=== PATIENT | male | born 1960 ===

== ENCOUNTER 2017-06-29 18:16 | Inpatient (IN) | payer MEDICARE, BC ==
[~2017-06-29] VITALS: Ht 182.8 cm; Wt 117.9 kg
--- NOTE | ~2017-06-29 | WRIGHTHP ---
[place], [place] PATIENT HISTORY AND PHYSICAL EXAM NAME: [facility]AR SR [id number] UNIT #: [id number] ROOM: 312 DOCTOR: MARY KATE CARTER MD BIRTHDATE: [birth year] DOS: 06/30/2017 CHIEF COMPLAINT: "I was not sleeping doc, I did sleep last night." HISTORY OF PRESENT ILLNESS: This is a 56-year-old white male who was sent here from [facility] in [place]. The patient has been seeing Dr. Kelley, a psychiatrist in the area. The patient had been on Seroquel 800 mg a day and the dose was gradually being titrated down to 150 mg. As this titration occurred, the patient's dandre began to flare. He had gone several days without sleeping. His son brought him to the Emergency Room at [facility] stating that his father was manic. The patient has also been drinking a little bit more, approximately 5 beers a day. The patient denied suicidal thoughts, homicidal thoughts or any self-injurious thoughts, but did endorse that he had a terrible time sleeping and was found to be somewhat pressured and circumstantial during his interview at [facility]. He was sent to the [facility] to further evaluate to rule out organic factors and to stabilize on medication. PAST MEDICAL HISTORY: Remarkable for asbestosis, asthma, COPD, hyperlipidemia, hypertension and morbid obesity. MENTAL STATUS: The patient is alert and oriented to person, place and time. Mood is somewhat expansive. He is hypomanic this morning. He is somewhat intrusive and while he is circumstantial, he is interruptible and he does self redirect. He convincingly denies suicidal thoughts, homicidal thoughts or any self-injurious thoughts. He does report that he did get his first and best night sleep in some time with the Latuda. Memory is fully intact. DIAGNOSIS: Bipolar type 1, manic. PLAN: The patient was started on Latuda 40 mg at bedtime. He tolerated the medication well and did seem to have some improvement already with a good night sleep. He is pushing for discharge at the present time stating that he has things he can do and was just wanting to come here for medication adjustment. Given the fact that he responded positively already to the Latuda, he is asking to leave and follow up with Dr. Kelley. I will go ahead and increase his Latuda from 40 to 80 mg at night. I will provide him a script of 30 days and have him follow up with Dr. Kelley. [place], [place] PATIENT HISTORY AND PHYSICAL EXAM NAME: CHARLEE TOVAR SR UNIT #: [id number] ROOM: [facility] DOCTOR: MARY KATE CARTER MD BIRTHDATE: [birth year] MARY KATE CARTER MD CM:HISPHYS:PATIENT HISTORY AND PHYSICAL EXAMINATION 8 9 MARY KATE CARTER MD 06/30/17919 interface
[2017-06-29] MEDS ORDERED: SEROQUEL400 M1 PO (20:07)
[2017-06-29] MEDS ORDERED: AZOR 10-40 MG1 EACH PO (20:08)
[2017-06-29] MEDS ORDERED: BREO ELLIPTA 11 EACH INH (20:09)
[2017-06-29] MEDS ORDERED: SINGULAIR10 M1 PO (20:10)
[2017-06-29] MEDS ORDERED: PROAIR HFA8.5 GM INH (20:14)
[2017-06-29 22:00] VITALS: BP 132/86
--- NOTE | 2017-06-29 23:21 | NUR ---
GUY KHALIL,CHARLEE Fernández a 56 year old M admitted via stretcher from the OTHER as a voluntary admission. Arrived on unit at 2039. ALLERGIES: NKDA. Vital signs are: 97.4-96-18 132/86. The client signed the following forms with stated understanding: Authorization For The Release of Medical Information, Clothing List, Consent to Voluntary Admission and Hospitalization, Consent and Release Forms/Receipt of Rights, Acknowledgement of Advance Directive Information, Behavioral Health Consent Form, and Informed Consent of Medications. Admitted under the services of Dr. EMMA BOURGEOIS,MARY KATE. A search was conducted and hazardous articles were removed. Client was oriented to the unit. SHIRA DAILEY
--- NOTE | 2017-06-29 23:32 | NUR ---
CURRENTLY ON UNIT TO ASSESS PATIENT.
--- NOTE | 2017-06-30 03:38 | NUR ---
PT ALERT AND ORIENTED X4. PT PRESENTS WITH A BRIGHT AFFECT. DENIES SI/HI, HALLUCINATIONS, OR DELUSIONAL THOUGHT PROCESSES. ACTIVE AND PARTICIPATING IN ADMISSION ASSESSMENT. PT REPORTS NOT TAKING HIS MEDICATIONS FOR BIPOLAR DISORDER FOR TWO WEEKS BECAUSE HE "NEEDED TO GET THINGS DONE". PT FELT LIKE HE WAS OVER MEDICATED WITH SEROQUEL. PT'S SON BROUGHT HIM TO [facility] ED WITH REPORTS OF INCREASING MATIAS AND STAYING UP FOR 3 DAYS STRAIGHT. UPON ADMISSION, NO DISCERNABLE SIGNS OF MATIAS PRESENT. PT REPORTS THE LESSENED NEED FOR SLEEP AND A SLIGHT INCREASE IN IMPULSIVE BEHAVIOR. NO FLIGHT OF IDEAS OR PRESSURED SPEECH NOTED AT THIS TIME. PT HAS HAD DIFFICULTY SLEEPING THIS NIGHT WHICH HE ATTRIBUTES TO TAKING A NAP EARLIER IN THE DAY. PT ADMITTED TO STARTING DRINKING HEAVILY WITHIN THE PAST TWO WEEKS AFTER NOT HAVING ANY ALCOHOL FOR OVER THREE YEARS. DENIES PAST HX OF ALCOHOL ABUSE. PT REALIZES HIS 4 DRINK/DAY HABIT IS UNHEALTHY AND REPORTS READINESS FOR CESSATION. CONTINUE TO MONITOR FOR CHANGES IN BEHAVIOR. REFER TO FLOWSHEET FOR ADDITIONAL INFO.
--- NOTE | 2017-06-30 03:38 | NUR ---
24HR CHART CHECKS COMPLETE
[2017-06-30 06:52] LABS: BASO % 0.7 % (0.0-1.0); EOS # 0.3 10*3/uL (0.0-0.4); EOS % 4.6 % (1.0-4.0); HEMATOCRIT 36.2 % (42.0-52.0); HEMOGLOBIN 11.3 g/dl (14.0-18.0); LYMPH # 1.9 10*3/uL (1.3-4.4); LYMPH % 30.4 % (27.0-41.0); MEAN CELL VOLUME 91.2 fl (80.0-94.0); MEAN CORPUSCULAR HGB 28.5 pg (27.0-31.0); MEAN CORPUSCULAR HGB CONC 31.2 g/dl (33.0-37.0); MEAN PLATELET VOLUME 10.4 fl (9.6-12.3); MONO # 0.5 10*3/uL (0.1-1.0); MONO % 8.7 % (3.0-9.0); NEUT # 3.4 10*3/uL (2.3-7.9); NEUT % 55.3 % (47.0-73.0); PLATELET COUNT AUTOMATED 300 10*3/uL (130-400); RED BLOOD COUNT 3.97 10*6/uL (4.50-5.90); WHITE BLOOD COUNT 6.1 10*3/uL (4.8-10.8)
[2017-06-30 07:12] LABS: ALBUMIN 3.6 gm/dl (3.1-4.5); ALKALINE PHOSPHATASE 87 U/L (45-117); BUN 15 mg/dl (7-24); CHLORIDE 107 mmol/L (98-107); CREATININE 0.98 mg/dL (0.70-1.30); POTASSIUM 4.1 mmol/L (3.5-5.1); SGOT/AST 14 IU/L (3-35); SGPT/ALT 24 U/L (12-78); SODIUM 140 mmol/L (136-145)
[2017-06-30 07:21] LABS: THYROID STIM HORMONE (HS) 1.08 uIU/ml (0.358-4.75)
[2017-06-30 07:41] VITALS: BP 130/85
--- NOTE | 2017-06-30 08:16 | NUR ---
URINALYSIS OBTAINED VIA CLEAN CATCH, LABELED AND SENT TO LAB AT THIS TIME.
[2017-06-30] MEDS ORDERED: DIVALPROEX SOD500 MG PO (08:53)
[2017-06-30] MEDS ORDERED: LATU80TA PO (08:53)
--- NOTE | 2017-06-30 09:00 | NUR ---
TREATMENT TEAM WAS HELD WITH THE THE FOLLOWING: DR. CARTER, RESIDENT, RN, AT, SW. DR. CARTER ORDERED PT'S DISCHARGE DUE TO NO DANGER TO SELF OR OTHERS.
--- NOTE | 2017-06-30 09:26 | NUR ---
CALL PLACED TO [phone] MADE AWARE PT BEING DISCHARGED TODAY APPROX 1130/12.
--- NOTE | 2017-06-30 09:30 | NUR ---
SW SPOKE WITH PT ABOUT DISCHARGE PLANS. PT STATED THAT HIS SON KRISTYN WAS COMING TO PICK HIM UP AT NOON. PT STATED THAT HE HAS AN APPOINTMENT [id number] THAT HE DOES NOT REMEMBER HIS NAME. PT SEE DR. PEDRO CAREY FOR MEDICAL. PT COULD NOT REMEMBER HIS PHONE NUMBER AND GAVE THE HOUSE NUMBER [phone].
[2017-06-30] MEDS ORDERED: VITAMIN D50000 UNIT PO (09:38)
--- NOTE | 2017-06-30 09:45 | NUR ---
PHONE NUMBER [phone] IS NOT ACCEPTING PHONE CALLS.
--- NOTE | 2017-06-30 09:50 | NUR ---
DR. DAVILA ON UNIT, MADE AWARE OF LOW VITAMIN D LEVEL 17.6 - DR. DAVILA PRINTED SCRIPT FOR PT FOR VITAMIN D 50,000IU PO WEEKLY, STATES TO HAVE PT TAKE AFTER DISCHARGE.
--- NOTE | 2017-06-30 10:00 | NUR ---
MARIE RECEIVED CALL FROM PT'S SISTER GILBERT SR ([phone]). Nakia SAID THAT PT AHS STOPPED TAKING HIS MEDICATIONAND HAS BEEN DRINKING TOO MUCH. PT WILL SAY THAT HE'LL TAKE MEDS BUT THEN DOES NOT. SON KRISTYN GOING BACK TO [place] ON MONDAY. PT'S MOTHER WHO HE LIVES WITH IS IN THE HOSPITAL. THERE WILL BE NO ONE TO MAKE SURE PT IS TAKING HIS MEDS. NAKIA FEELS PT IS DELUSIONAL. MARIE ASKED PTIF SHE COULD SPEAK WITH SISTER NAKIA. PT WAIVERED BACK AND FORTH THEN SAID SW COULD TALK WITH HER. MARIE IFORMED NAKIA THAT PT WAS BEING DISCHARGED TODAY DUE TO NOT BEING A DANGER TO SELF OR OTHERS. NAKIA FELT THAT PT SHOULD NOT BE DISCHARGED. MARIE WILL RELAY THIS INFORMATION TO DR. CARTER.
--- NOTE | 2017-06-30 10:15 | NUR ---
DR. HERNANDEZ HERE TO SEE PT AT THIS TIME.
--- NOTE | 2017-06-30 10:15 | NUR ---
SW SPOKE WITH PT CONCERNIG DISCHARGE PLANNING. SW GAVE PT OPTIONS FOR FOLLOW UP CARE FOR ALCOHOL ABUSE AND MENTAL HEALTH. PT CHOOSE TO GO TO [facility]. SW EXPLAINED THAT PT COULD HAVE CASE MANAGEMENT SERVICES WHERE CM COULD CHECK TO MAKE SURE PT IS TAKING MEDS. PT AGREED TO THIS. PT HAD FAMILY DR PEDRO CAREY FOR MEDS.
--- NOTE | 2017-06-30 10:25 | NUR ---
MARIE RECEIVED CALL FROM SON KRISTYN THREATENING TO [facility] FOR NEGLECT IF PT IS DISCHARGED TODAY. MARIE TRIED TO EXPLAIN TO SON THAT PT WILL HAVE FOLLOW UP APPOINTMENTS TO CONTINUE TO HIS TREATMENT. MARIE EXPLAINED THAT DR. CARTER SAID THAT PT WAS NOT A DANGER TO SELF OR OTHERS. MARIE WILL GIVE DR. CARTER HIS NUMBER AND CONCERNS. KRISTYN WILL NOT BE ABLE TO LANDSCAPE ARTIST PT UNTIL 3PM.
--- NOTE | 2017-06-30 10:30 | NUR ---
MARIE NOTIFIED DR. CARTER OF THE CONCERNS OF THE SISTER AND SON KRISTYN WITH PHONE NUMBERS. DR. CARTER STATED THAT PT IS NOT A DANGER TO HIMSELF OR OTHERS. MARIE INFORMED DR. CARTER THAT PT HAS NOT BEEN SEEN BY MENTAL HEALTH SINCE 2014. DR. CARTER SAID TO SET UP FOLLOW UP FOR MENTAL AND ALCOHOL WITH A PROVIDER. DR. CARTER STATED THAT HE WILL NOT BE ABLE TO MAKE PT MED COMPLIANT IN A FEW DAYS.
[2017-06-30 10:53] LABS: BILIRUBIN NEGATIVE (NEGATIVE); BLOOD NEGATIVE (NEGATIVE); CLARITY SL CLOUDY (CLEAR); COLOR YELLOW (YELLOW); GLUCOSE NEGATIVE (NEGATIVE); KETONE 1+ (NEGATIVE); LEUKO ESTERASE NEGATIVE (NEGATIVE); NITRITE NEGATIVE (NEGATIVE); PH 7.5 (5.0-9.0); SPECIFIC GRAVITY 1.015 (1.005-1.030)
[2017-06-30 11:27] LABS: WBC 0-2 wbc/hpf (0-5)
--- NOTE | 2017-06-30 11:30 | NUR ---
Goals, craft and remenissing Patient present and actively participated in group. Patient able to state positive goal for the day. Patient participated in group however as the group progressed patients behavior and speech became more fast pace and hurried. Attempts to redirect patient to slow down with little success.
--- NOTE | 2017-06-30 12:23 | NUR ---
SW CALLED [facility] TO SEE IF THIS IS WHERE PT HAS AN APPOINTMENT. PT HAS NOT BEEN SEEN THERE SINCE 2014.
--- NOTE | 2017-06-30 12:25 | NUR ---
SW SPOKE WITH 'S PRIVATE OFFICE. PT HAS NOT BEEN SEEN THERE SINCE 2011.
--- NOTE | 2017-06-30 12:26 | NUR ---
SW SPOKE WITH [facility]. PT IS NOT A CURRENT CLIENT. PT WAS ONLY EVALUATED FOR ACCESS.
--- NOTE | 2017-06-30 12:52 | NUR ---
DISCHARGE INSTRUCTIONS REVIEWED WITH PT AT THIS TIME. MEDICATION EDUCATION SHEETS PROVIDED. PT GIVEN OPPORTUNITY TO ASK QUESTIONS, PT VERBALIZED UNDERSTANDING OF ALL INFORMATION PROVIDED. THIS NURSE STRESSED IMPORTANCE OF MEDICATION COMPLIANCE AND KEEPING FOLLOW UP APPOINTMENTS. PT VERBALIZED UNDERSTANDING AND STATES "I WILL." PAPER SCRIPTS GIVEN TO PT FOR LATUDA, DEPAKOTE AND VITAMIN D. PT LEFT THE UNIT AT 1252 WITH FAMILY MEMBER TO BE DISCHARGE HOME VIA PRIVATE VEHICLE. ALL PERSONAL BELONGINGS WERE SENT WITH THE PT INCLUDING LOCK BOX ITEMS. PT SIGNED FOR RECIEPT OF LOCK BOX AND PERSONAL ITEMS PRIOR TO LEAVING THE UNIT. PT LEFT IN STABLE CONDITION.
--- NOTE | 2017-06-30 14:32 | NUR ---
MARIE SCHEDULED FOLLOW UP WITH DR. PEDRO CAREY FOR AT 3:15PM. IN [facility]. MARIE SCHEDULED FOLLOW UP WITH [facility] FOR AT 12:30 PM. WITH ELLI SUTTON.
--- NOTE | 2017-06-30 14:36 | NUR ---
SW INFORMED PT THAT SON COULD NOT PICK HIM UP UNTIL 3PM. PT SAID THAT HE WOULD TAKE A TAXI BECASUSE HE HAD MONEY. PT CALLED [facility] TO PICK HIM UP SOONER. PT SAID ANDRA AND KRISTYN. WERE ON THIER. WAY. PT COOPER SNOT INFORMATION GIEN TO ANYONE BUT VIVIENPATRICE. SW HAD PT SIGN DISCLOSURES FORMS FOR THIS.
--- NOTE | 2017-06-30 14:38 | NUR ---
[facility] AND SON WITH GRANDDTR CAME TO UNIT. SW MEET THEM ON OUTSIE OF UNIT AND EXPLANINED THAT PT ONLY ALLOWED SW TO GIVE INFORMATION TO RHANDI AND GRANDDTR WAS TOO YOUNG TO ENTER UNIT. SON AND GRANDDTR TAKEN TO SURGICAL WAITING AND OFFERED A SNACK WHILE THEY WAOTED FOR PT.
--- NOTE | 2017-06-30 14:40 | NUR ---
SW AND NURSE REVIEWED DISCHARGE PAPERWORK WITH PT AND ANDRA. PT SIGNED FORMS AND VOICED UNDERSTANDING. SW STRESSED WITH PT TO KEEP FOLLOW UP APPOINTMENTS AND TAKE MEDICATIONS DAILY. PT STATED THAT HE IS NOT DRINKING ANYMORE. FOLLOW UP APPOINTMENTS WERE MADE WITH [facility] FOR MENTAL AND ALCOHOL TREATMENT ON 07/04/17 12:30PM AND DR. PEDRO CAREY FOR MEDICAL ON 173:15PM. PT WAS DISCHARGED HOME.
== END 2017-06-30 12:52 | disposition home or self-care (01) | DRG 885 ==
LOC: 3N 18:16
PROVIDERS: ADMIT Psychiatry & Neurology Psychiatry
DX: F31.10 Bipolar disorder, current episode manic without psychotic features, unspecified (principal); E66.01 Morbid (severe) obesity due to excess calories; J61 Pneumoconiosis due to asbestos and other mineral fibers; F10.10 Alcohol abuse, uncomplicated; E78.5 Hyperlipidemia, unspecified; J44.9 Chronic obstructive pulmonary disease, unspecified; J45.909 Unspecified asthma, uncomplicated; I10 Essential (primary) hypertension; Z82.49 Family history of ischemic heart disease and other diseases of the circulatory system; Z83.3 Family history of diabetes mellitus; Z79.899 Other long term (current) drug therapy; Z79.51 Long term (current) use of inhaled steroids; Z68.35 Body mass index [BMI] 35.0-35.9, adult